=== PATIENT | male | born 1955 | race Caucasian/White ===

== ENCOUNTER → 2018-07-12 07:01 | Outpatient (CLI) | payer BC, SELFPAY ==
[2018-07-12 08:20] LABS: ALT 25 U/L (12-78); AST 18 U/L (15-37); Albumin 3.7 g/dL (3.4-5.0); Alkaline Phosphatase 84 U/L (46-116); Anion Gap 7.4 mmol/L (3-11); BUN 17 mg/dL (7-18); Bilirubin, Total 0.4 mg/dL (0.2-1.0); CO2 29.6 mmol/L (21.0-32.0); CREATININE 0.76 mg/dL (0.70-1.30); Calcium 8.7 mg/dL (8.5-10.1); Chloride 102 mmol/L (98-107); Cholesterol 122 mg/dL (50-200); Glucose 99 mg/dL (70-100); HDL Cholesterol 32 mg/dL (40-60); LDL CHOLESTEROL 75 mg/dL (<100); Potassium 3.9 mmol/L (3.5-5.1); Sodium 139 mmol/L (136-145); Total Protein 6.8 g/dL (6.4-8.2); Triglyceride 79 mg/dL (30-150)
== END ==
PROVIDERS: PCP Family Medicine; Visit Provider Family Medicine
DX: I10 Essential (primary) hypertension (principal); E78.5 Hyperlipidemia, unspecified
CPT/HCPCS: 36415; 80053; 80061; 83721

== ENCOUNTER 2020-01-30 07:08 | Outpatient (CLI) | payer BC, SELFPAY ==
[2020-01-30 08:37] LABS: ALT 26 U/L (16-63); AST 19 U/L (15-37); Albumin 3.8 g/dL (3.4-5.0); Alkaline Phosphatase 74 U/L (46-116); Anion Gap 5.9 mmol/L (3-11); BUN 19 mg/dL (7-18); Bilirubin, Total 0.5 mg/dL (0.2-1.0); CO2 32.1 mmol/L (21.0-32.0); CREATININE 0.73 mg/dL (0.70-1.30); Calcium 8.8 mg/dL (8.5-10.1); Chloride 101 mmol/L (98-107); Glucose 109 mg/dL (74-106); Potassium 4.1 mmol/L (3.5-5.1); Sodium 139 mmol/L (136-145); Total Protein 6.7 g/dL (6.4-8.2)
== END 2020-01-30 07:28 ==
PROVIDERS: PCP Family Medicine; Visit Provider Family Medicine
DX: I10 Essential (primary) hypertension (principal)
CPT/HCPCS: 36415; 80053

== ENCOUNTER 2021-08-08 16:00 | Outpatient (CLI) | payer BC, SELFPAY ==
--- NOTE | 2021-08-08 14:30 | DI.RAD_ITS ---
Exam(s) XR CHEST 2V PA LATERAL EXAM: XR CHEST 2V PA LATERAL CLINICAL HISTORY: Dyspnea, wheezing and LE edema, R06.00. TECHNIQUE: 2D digital imaging was performed. COMPARISON: No exams were available for comparison FINDINGS: There is cardiomegaly. Mediastinum not widened. Nodular infiltrates noted in the upper right lung field. Lesser amount of the same evident in the le ft upper lobe region. There is a small left pleural effusion. Advanced degenerative changes right glenohumeral joint IMPRESSION: Nodular infiltrates in the upper lung k[place], right more so than left.Small left pleural effusion. Chest CT scan recommended Cardiomegaly. No pulmonary edema DATA REPOSITORY: RADIATION DOSE DELIVERED:
== END 2021-08-08 16:20 ==
PROVIDERS: PCP Family Medicine; Visit Provider Family Medicine
DX: R06.00 Dyspnea, unspecified (principal); R06.2 Wheezing; R91.8 Other nonspecific abnormal finding of lung field; J90 Pleural effusion, not elsewhere classified; I51.7 Cardiomegaly
CPT/HCPCS: 71046

== ENCOUNTER 2021-08-08 21:05 | Outpatient (REF) | payer BC, SELFPAY ==
[2021-08-10 17:15] LABS: COVID-19 RT-PCR UVMMC Result Negative (Negative)
== END 2021-08-08 21:06 | disposition home or self-care (01) ==
LOC: NCHCN 21:05
PROVIDERS: PCP Family Medicine; Visit Provider Family Medicine
DX: Z20.822 Contact with and (suspected) exposure to COVID-19 (principal); J18.9 Pneumonia, unspecified organism
CPT/HCPCS: U0003

== ENCOUNTER 2021-08-13 12:27 | Outpatient (REF) | payer BC, SELFPAY | END 2021-08-13 12:28 | disposition home or self-care (01) | LOC: LBN 12:27 | PROVIDERS: PCP Family Medicine; Visit Provider Family Medicine | DX: R32 Unspecified urinary incontinence (principal); R41.82 Altered mental status, unspecified | CPT/HCPCS: 87086 ==

== ENCOUNTER 2021-08-16 11:15 | Outpatient (CLI) | payer BC, SELFPAY ==
[2021-08-16 14:00] LABS: Ammonia 16 umol/L (11-32)
[2021-08-16 15:11] LABS: ALT 84 U/L (16-63); AST 46 U/L (15-37); Alkaline Phosphatase 126 U/L (46-116); Anion Gap 4.3 mmol/L (3-11); BUN 17 mg/dL (7-18); CO2 34.7 mmol/L (21.0-32.0); CREATININE 0.7 mg/dL (0.70-1.30); Calcium 8.4 mg/dL (8.5-10.1); Chloride 93 mmol/L (98-107); Glucose 94 mg/dL (74-106); Sodium 132 mmol/L (136-145); Total Protein 5.9 g/dL (6.4-8.2)
== END 2021-08-16 11:16 | disposition home or self-care (01) ==
LOC: LBO 11:15
PROVIDERS: PCP Family Medicine; Visit Provider Family Medicine
DX: G93.41 Metabolic encephalopathy (principal)
CPT/HCPCS: 36415; 80053; 82140

== ENCOUNTER 2021-09-14 04:36 | Outpatient (CLI) | payer BC, SELFPAY ==
[2021-09-14 14:31] LABS: ALT 36 U/L (16-63); AST 21 U/L (15-37); Albumin 3.4 g/dL (3.4-5.0); Alkaline Phosphatase 76 U/L (46-116); Anion Gap 8.7 mmol/L (3-11); BUN 11 mg/dL (7-18); Bilirubin, Total 0.8 mg/dL (0.2-1.0); CO2 28.3 mmol/L (21.0-32.0); CREATININE 0.8 mg/dL (0.70-1.30); Calcium 8.8 mg/dL (8.5-10.1); Chloride 103 mmol/L (98-107); Glucose 105 mg/dL (74-106); Potassium 4.2 mmol/L (3.5-5.1); Sodium 140 mmol/L (136-145); Total Protein 6.2 g/dL (6.4-8.2)
== END 2021-09-14 04:37 | disposition home or self-care (01) ==
LOC: LBO 04:36
PROVIDERS: PCP Family Medicine; Visit Provider Family Medicine
DX: E87.1 Hypo-osmolality and hyponatremia (principal); E87.6 Hypokalemia; I95.9 Hypotension, unspecified
CPT/HCPCS: 36415; 80053

== ENCOUNTER 2021-09-22 18:16 | Outpatient (REF) | payer BC, SELFPAY ==
[2021-09-22 20:08] LABS: Bilirubin Moderate (Negative); Blood Negative (Negative); Clarity Cloudy (Clear); Glucose Negative (Negative); Ketones Trace mg/dL (Negative); Leukocyte Esterase Negative (Negative); Nitrite Positive (Negative); Specific Gravity >= 1.030 (1.005-1.025); pH 5.5 (5-8)
[2021-09-22 20:25] LABS: Bacteria Few HPF (Negative); Epithelial Cells Few HPF (Negative); RBC 0-2 HPF (0-2)
[2021-09-22 20:26] LABS: C & S Indicated? C&S Done As Ordered; Casts Negative LPF (Negative); Crystals Few Calcium Oxalate HPF (Negative); Mucus Trace (Negative)
== END 2021-09-22 18:17 | disposition home or self-care (01) ==
LOC: LBN 18:16
PROVIDERS: PCP Family Medicine; Visit Provider Family Medicine
DX: N39.41 Urge incontinence (principal)
CPT/HCPCS: 81003; 81015; 87086

== ENCOUNTER 2021-09-28 02:37 | Outpatient (CLI) | payer BC, SELFPAY ==
[2021-09-28 14:04] LABS: Abs Immature Grans 0.25 10^3/uL (0.0-0.06); Absolute Basophil Count 0.05 10^3/uL (0.0-0.2); Absolute Eosinophil Count 0.01 10^3/uL (0.0-0.7); Absolute Neutrophil Count 10.38 10^3/uL (1.2-6.7); Basophils % 0.4; Eosinophils % 0.1; HCT 43.2 % (40.0-50.0); HGB 14.3 g/dL (13.5-17.5); Immature Grans % 1.9; Lymphocytes % 9.3; MCH 29.3 pg (27.0-33.0); MCHC 33.1 % (32.0-36.0); MCV 88.5 fL (80-95); MPV 11.8 fL (8.0-11.0); Monocytes % 7.5; Neutrophils % 80.8; Nucleated RBC 0 %; Platelet Count 153 10^3/uL (130-400); RBC 4.88 10^6/uL (4.36-5.78); RDW 15.9 % (11.8-14.1); RDW-SD 50.8 fL; WBC 12.85 10^3/uL (4.4-10.8)
[2021-09-28 14:08] LABS: Absolute Monocyte Count 0.96 10^3/uL (0.1-0.8)
[2021-09-28 16:17] LABS: Anion Gap 9.1 mmol/L (3-11); BUN 20 mg/dL (7-18); CO2 25.9 mmol/L (21.0-32.0); CREATININE 0.9 mg/dL (0.70-1.30); Calcium 8.9 mg/dL (8.5-10.1); Chloride 98 mmol/L (98-107); Glucose 117 mg/dL (74-106); Potassium 5.1 mmol/L (3.5-5.1); Sodium 133 mmol/L (136-145)
== END 2021-09-28 02:38 | disposition home or self-care (01) ==
LOC: LBO 02:38
PROVIDERS: PCP Family Medicine; Visit Provider Family Medicine
DX: E87.1 Hypo-osmolality and hyponatremia (principal); E87.6 Hypokalemia; M79.18 Myalgia, other site; I95.9 Hypotension, unspecified
CPT/HCPCS: 36415; 80048; 84155; 85025

== ENCOUNTER 2021-09-30 01:12 | Outpatient (CLI) | payer BC, SELFPAY ==
--- NOTE | 2021-09-30 07:15 | DI.RAD_ITS ---
Exam(s) XR CHEST 2V PA LATERAL EXAM: XR CHEST 2V PA LATERAL CLINICAL HISTORY: R/O pneumonia, ELEVATED WBC,D72.829 TECHNIQUE: COMPARISON: CR XR CHEST 2V PA LATERAL from 08/08/2021 FINDINGS: The examination is compared with previous examination of August 08. The heart is enlarged and a ppears to have increased in size since the prior examination, although this may be due in part to the AP technique. There is an apparent left pleural effusion. No definite right pleural effusion. There is prominence of the pulmonary interstitial markings raising the possibility of mild pulmonary edema. Note is also made of questionable areas of consolidation involving the right mid to upper marcin g, prior chest radiograph showed question nodular radiodensities of the right upper lung field and th [place] questionable areas of nodular radiodensity do persist although are less easily seen than on prior examination. Again this may be due to AP technique. IMPRESSION: Cardiomegaly and pleural effusion, question mild CHF. Persistent reticular and or nodular opacities, right upper lung field, additional evaluation with [facility] CT recommended. RADIATION DOSE DELIVERED: Total DLP
== END 2021-09-30 01:32 ==
PROVIDERS: PCP Family Medicine; Visit Provider Family Medicine
DX: J90 Pleural effusion, not elsewhere classified (principal); I51.7 Cardiomegaly; R91.8 Other nonspecific abnormal finding of lung field; D72.829 Elevated white blood cell count, unspecified
CPT/HCPCS: 71046

== ENCOUNTER 2021-10-09 06:38 | Outpatient (CLI) | payer BC, SELFPAY ==
[2021-10-09 10:08] LABS: Abs Immature Grans 0.17 10^3/uL (0.0-0.06); Absolute Basophil Count 0.03 10^3/uL (0.0-0.2); Absolute Eosinophil Count 0.02 10^3/uL (0.0-0.7); Absolute Lymphocyte Count 2.39 10^3/uL (1.2-3.4); Absolute Monocyte Count 0.78 10^3/uL (0.1-0.8); Absolute Neutrophil Count 6.25 10^3/uL (1.2-6.7); Basophils % 0.3; Eosinophils % 0.2; HGB 14.4 g/dL (13.5-17.5); Immature Grans % 1.8; Lymphocytes % 24.8; MCH 28.9 pg (27.0-33.0); MCHC 32.7 % (32.0-36.0); MCV 88.4 fL (80-95); MPV 10.6 fL (8.0-11.0); Monocytes % 8.1; Neutrophils % 64.8; Nucleated RBC 0 %; Platelet Count 121 10^3/uL (130-400); RBC 4.98 10^6/uL (4.36-5.78); RDW 15.8 % (11.8-14.1); RDW-SD 51.2 fL; WBC 9.64 10^3/uL (4.4-10.8)
[2021-10-09 10:28] LABS: BUN 15 mg/dL (7-18); CREATININE 0.7 mg/dL (0.70-1.30); Calcium 8.7 mg/dL (8.5-10.1); Glucose 109 mg/dL (74-106); Potassium 3.6 mmol/L (3.5-5.1); Sodium 136 mmol/L (136-145)
[2021-10-09 10:29] LABS: Anion Gap 5.3 mmol/L (3-11); CO2 31.7 mmol/L (21.0-32.0); Chloride 99 mmol/L (98-107); NT-proBNP 14626 pg/mL (<300)
== END 2021-10-09 06:39 | disposition home or self-care (01) ==
PROVIDERS: PCP Family Medicine; Visit Provider Nurse Practitioner Adult Health
DX: E87.1 Hypo-osmolality and hyponatremia (principal); I51.7 Cardiomegaly; I10 Essential (primary) hypertension; J90 Pleural effusion, not elsewhere classified; R60.0 Localized edema; R06.00 Dyspnea, unspecified; D72.829 Elevated white blood cell count, unspecified; R63.4 Abnormal weight loss; R93.89 Abnormal findings on diagnostic imaging of other specified body structures
CPT/HCPCS: 36415; 80048; 83880; 85025

== ENCOUNTER 2021-10-27 19:34 | Outpatient (REF) | payer BC, SELFPAY | END 2021-10-27 19:35 | disposition home or self-care (01) | LOC: LBN 19:34 | PROVIDERS: PCP Family Medicine; Visit Provider Nurse Practitioner Family | DX: L03.115 Cellulitis of right lower limb (principal) | CPT/HCPCS: 87070 ==